=== PATIENT | female | born 1960 | race Caucasian/White ===

== ENCOUNTER 2019-02-26 14:07 | Emergency (ER) | payer OTHER ==
[2019-02-26 14:55] VITALS: BP 143/67; PULSE 78; TEMP 97.2; BMI 30.5
--- NOTE | 2019-02-26 17:53 | PDOC ---
History of Present Illness - General Chief Complaint: Psychiatric Stated Complaint: EVALUATION Time Seen by Provider: 02/26/19 14:58 History Source: Patient Exam Limitations: No Limitations - History of Present Illness Initial Comments: 02/26/19 17:18 58 yo female pmh RA and SI with multiple admissions to Psych wards for care presents to the ED from [facility] for SI. Pt states she was placed into rehab 1 month ago for inability to care for herself at home due to worsening RA. [place] staff told pt her insurance will stop covering her rehab early March for rehab and she will need to be transferred to a [facility] without rehab coverage. Pt states she does not like being in the NH and feels helpless now especially since she has not improved after rehab and will likely need to live in a NH for the rest of her life. Pt states she has become very depressed since hearing this news and mentioned to her nurses that if she were to have to move NH and live there indefinitely she would (paraphrased) not be able to continue living and have to take things into her own hands. Pt admits to multiple admissions to psych hospitals for SI, denies ever having a concrete plan to hurt herself or anyone else and denies current SI/HI. Past History - Past Medical History Allergies/Adverse Reactions: Allergies Allergy/AdvReac Type Severity Reaction Status Date / Time aspirin [From Fiorinal] Allergy Unknown Verified 02/26/19 15:04 butalbital [From Fiorinal] Allergy Unknown Verified 02/26/19 15:04 caffeine [From Fiorinal] Allergy Unknown Verified 02/26/19 15:04 ketorolac [From Toradol] Allergy Unknown Verified 02/26/19 15:04 NSAIDS (Non-Steroidal Allergy Unknown Verified 02/26/19 15:04 Anti-Inflamma Penicillins Allergy Unknown Verified 02/26/19 15:04 Anemia: Yes COPD: No GI Disorders: Yes (IBS) Disorders: Yes (FUAD) HTN: Yes Psychiatric Problems: Yes (BI-POLAR,ADHD,BORDER-LINE PERSONALITY DISORDER,PTSD) Seizures: (HYPO) Thyroid Disease: Yes (HYPO) Other medical history: MONOPLEGIA OF BLE, RA - Suicide/Smoking/Psychosocial Hx Smoking History: Never smoked Have you smoked in the past 12 months: No Information on smoking cessation initiated: No Hx Alcohol Use: No Drug/Substance Use Hx: No Review of Systems - Review of Systems Constitutional: Yes: See HPI HEENTM: Yes: See HPI Respiratory: Yes: See HPI Cardiac (ROS): Yes: See HPI ABD/GI: Yes: See HPI : Yes: See HPI Musculoskeletal: Yes: See HPI Integumentary: Yes: See HPI Neurological: Yes: See HPI *Physical Exam - Vital Signs Last Vital Signs Temp Pulse Resp BP Pulse Ox 97.2 F L 78 17 143/67 100 02/26/19 14:37 02/26/19 14:37 02/26/19 14:37 02/26/19 14:37 02/26/19 14:37 Medical Decision Making - Medical Decision Making 02/26/19 18:48 58 yo female pmh RA and SI with multiple admissions to Psych wards for care presents to the ED from [facility] for SI. Pt states she was placed into rehab 1 month ago for inability to care for herself at home due to worsening RA. [place] staff told pt her insurance will stop covering her rehab early March for rehab and she will need to be transferred to a [facility] without rehab coverage. Pt states she does not like being in the NH and feels helpless now especially since she has not improved after rehab and will likely need to live in a NH for the rest of her life. Pt states she has become very depressed since hearing this news and mentioned to her nurses that if she were to have to move NH and live there indefinitely she would (paraphrased) not be able to continue living and have to take things into her own hands. Pt admits to multiple admissions to psych hospitals for SI, denies ever having a concrete plan to hurt herself or anyone else and denies current SI/HI. vitals stable, no current medical complaints Discussed case with pt primary Psychiatrist, Dr. Eliezer Parikh. States pt does have long Hx of SI with multiple admissions for SI clearance. Recommends in house psych consult for clearance today and states pt can be transferred to [facility] if inpatient psych ius needed Dr. Heath consulted, sees pt and clears her from Psych standpoint Pt has no new medical complaints and does not require labs since she presents from [place] and denies taking any medications Pt is asking to be DC back to NH for rehab and is safe medically and psych standpoint *DC/Admit/Observation/Transfer Diagnosis at time of Disposition: Suicidal ideation - Discharge Dispostion Disposition: HOME Condition at time of disposition: Stable Decision to Admit order: No - Referrals Referrals: Moi Paulson MD [Primary Care Provider] - - Patient Instructions Printed Discharge Instructions: DI for Suicidal Ideation-Adult Additional Instructions: Please make an appointment with your Primary Doctor and Primary Psychiatrist as soon as possible. If you have any questions or concerns the ER is always open and ready to help you in any way possible. Continue taking your home dosed medications and return to the ER for new or concerning symptoms including but not limited to: thoughts of self harm or thoughts of harming others. Thank you - Post Discharge Activity
--- NOTE | 2019-02-26 18:43 | PDOC ---
Documentation entered by Abdiel Steven SCRIBE, acting as scribe for Indu Valentin MD. Indu Valentin MD: This documentation has been prepared by the Maurizio nuno Daniel, SCRIBE, under my direction and personally reviewed by me in its entirety. I confirm that the documentation accurately reflects all work, treatment, procedures, and medical decision making performed by me. Attending Attestation - Resident Resident Name: Jerzy Coleman - ED Attending Attestation I have performed the following: I have examined & evaluated the patient, The case was reviewed & discussed with the resident, I agree w/resident's findings & plan, Exceptions are as noted - HPI HPI: 02/26/19 16:48 The patient is a 58 year old female with a past medical history of suicidal ideations, anxiety, and rheumatoid arthritis here today from [facility] for nursing and rehabilitation for evaluation of possible suicidal ideations. The patient reports that she was admitted recently to another hospital for rheumatoid arthritis and was discharged to [facility] for rehab. Patient states that she hates the senior living and feels terrible. Patient states that her therapy ends in 04/05 and is afraid of being kicked out. According to the senior living the patient made a comment about not knowing if she can live if she is kicked out. Patient is actively denying any suicidal ideations and also notes that sometimes it feels like her heart skips a beat. Allergies: aspirin, butalbital, caffeine, ketorolac, NSAIDS, penicillins PCP: Moi Paulson - Physicial Exam PE: 02/26/19 17:30 GENERAL: The patient is in no acute distress. ENT: Ears normal, nares patent, oropharynx clear without exudates. Moist mucous membranes. NECK: Normal range of motion, supple, no nuchal rigidity LUNGS: Breath sounds equal, clear to auscultation bilaterally. No wheezes, and no crackles. HEART:Regular rate and rhythm, normal S1 and S2 without murmur, rub or gallop. ABDOMEN: Soft, nontender, normoactive bowel sounds. EXTREMITIES: Normal range of motion, no edema. NEUROLOGICAL: Cranial nerves II through XII grossly intact. Normal speech. No focal neurological deficits. SKIN: Warm, Dry, normal turgor, no rashes or lesions noted. - Medical Decision Making 02/26/19 18:40 58 yo F presenting from the senior living due to reported suicidality Pt tells me that the thought of going to another senior living like where she is , made her say that she would "end it" Pt denies suicidality or homicidality to me now Will contact Dr Ivana Cavazoso pending psychiatric assessment
--- NOTE | 2019-02-26 18:55 | CON.PSY ---
Psychiatry Consult Chief Complaint: 58 Year old scott A RESIDENT OF [facility] SENT HERE FOR potential suicidal ideas. Patient denies saying that she wants to kill herself. She said If I have to go to another [facility] i might end it ./. I said in frustration. I am feeling better wiuth my new Infusions for [place]. I want to live and go abck to my Apartmrnt. She hasa history of Major Depressive Disorder beoing gtreated at [facility]. Symptoms: reports: Irritability - Previous Psychiatric Treatment Outpatient: Less than 6 mos ago Inpatient: One prior admission - Previous Substance Abuse Treatment Outpatient: None Inpatient: None - Reason for Previous Treatment Reason for Previous Treatment: Major Depression - Allergies Allergies: Allergies Allergy/AdvReac Type Severity Reaction Status Date / Time aspirin [From Fiorinal] Allergy Unknown Verified 02/26/19 15:04 butalbital [From Fiorinal] Allergy Unknown Verified 02/26/19 15:04 caffeine [From Fiorinal] Allergy Unknown Verified 02/26/19 15:04 ketorolac [From Toradol] Allergy Unknown Verified 02/26/19 15:04 NSAIDS (Non-Steroidal Allergy Unknown Verified 02/26/19 15:04 Anti-Inflamma Penicillins Allergy Unknown Verified 02/26/19 15:04 - Current Living Status Usual Living Arrangement: Custodial - Current Mental Status Evaluation Appearance: Well Groomed Attitude: Cooperative - Mood Mood: Euthymic - Speech/Language Expressive: Coherent - Psychomotor Activity Psychomotor Activity: Tremors - Thought Process Thought Process: Intact - Thought Content Hallucinations: Absent Delusions: Absent - Self Perception Self Perception: No Impairment - Cognition Attention: Alert Orientation: Time Memory, Immediate Recall: Intact Memory, Short Term: 3/3 Memory, Remote with Promptin/3 - Concentration Serial Sevens Intact: Yes Simple Calculations Intact: Yes - Abstraction Proverb Interpretation: Intact Judgement: Intact - Insight Insight: Intact - Impulse Control Impulse Control: Good Control - Suicidal Ideation Suicidal Ideation: No - Homicidal Ideation Homicidal Ideation: No Assessment/Plan 1) Patient is not Suicidal at this time, 2) Return to [facility].
== END 2019-02-26 21:20 | disposition home or self-care (01) ==
LOC: JER 14:07
DX: R45.851 Suicidal ideations (principal); K58.9 Irritable bowel syndrome, unspecified; I10 Essential (primary) hypertension; E03.9 Hypothyroidism, unspecified; F31.9 Bipolar disorder, unspecified
CPT/HCPCS: 99282-25